=== PATIENT | male | born 1955 | race Caucasian/White ===

== ENCOUNTER → 2018-05-20 | Outpatient (CLI) | payer OTHER | LOC: YCFC.O 13:52 | PROVIDERS: ATTEND Family Medicine | DX: H81.12 Benign paroxysmal vertigo, left ear (principal) ==

== ENCOUNTER → 2018-05-21 | Outpatient (CLI) | payer OTHER ==
--- NOTE | 2018-05-21 14:03 | MRI ---
EXAM DESCRIPTION: Brain w/wo Contrast: Magnetic Resonance Imaging. CLINICAL HISTORY: 62 years Male V[place]IG[place] COMPARISON: None. TECHNIQUE: Multiplanar, high-field MRI, multiple conventional sequences, without and with gadolinium IV contrast. No adverse reactions. Multiple axial diffusion sequences. FINDINGS: Normal FLAIR and T2-weighted signal in the periventricular white matter and dawn-white matter junctions of the cerebral hemispheres. . Normal signal in the bilateral basal ganglia. No hemorrhage, no cerebral edema, no mass-effect. No diffusion restriction. Normal contrast enhancement. Normal signal in the brainstem and cerebellar hemispheres. No hemorrhage, no cerebral edema, no mass-effect. No diffusion restriction. Normal signal in the auditory and vestibular region of the brain stem and associated cranial nerves. Normal contrast enhancement. Concordance of the diffusion and non-diffusion sequences with no evidence of acute or subacute infarction. Cortical sulci, ventricles, and other CSF spaces, and the subdural spaces are normally configured for patients age. No effacement or displacement. No midline shift. No extra-axial hemorrhage. Normal contrast enhancement. Normal flow signal void in the major vessels of the [place], and the venous sinuses. IACs are symmetric bilaterally. The left anterior cerebral artery appears dominant compared to the right artery. Normal signal in the bilateral mastoid air cells. No mass effect in the bilateral Cerebellopontine angles. Normal contrast enhancement. Pituitary gland occupies most of the sella. Normal contrast enhancement. Base of the cerebellar tonsils is at the level of the foramen magnum. Minimal mucoperiosteal thickening in some cavities of the paranasal sinuses. No abnormal contrast enhancement. The bony calvarium is intact. IMPRESSION: 1. No mass effect, intra-axial or extra-axial hemorrhage, or cerebral edema. No abnormal contrast enhancement or diffusion restriction. 2. Minimal chronic paranasal sinusitis. 3. No mass effect, abnormal signal, or abnormal contrast enhancement in the auditory and vestibular region of the brain stem and cranial nerves. Electronically signed by: Emanuel Sierra MD 05/21/2018 2:02 PM [facility]
== END ==
LOC: MRI 10:43
PROVIDERS: ATTEND Family Medicine
DX: H81.12 Benign paroxysmal vertigo, left ear (principal); J32.9 Chronic sinusitis, unspecified

== ENCOUNTER → 2019-12-03 | Outpatient (CLI) | payer BC | LOC: YCFC.O 07:18 | PROVIDERS: ATTEND Family Medicine | DX: I10 Essential (primary) hypertension (principal); E78.5 Hyperlipidemia, unspecified; M10.19 Lead-induced gout, multiple sites; R53.83 Other fatigue; Z12.5 Encounter for screening for malignant neoplasm of prostate ==